=== PATIENT | female | born 1995 | race American Indian/Alaskan Native ===

== ENCOUNTER 2018-02-16 09:40 | Emergency (ER) | payer OTHER ==
[2018-02-16 09:47] VITALS: BP 117/59
[2018-02-16] MEDS ORDERED: TYLENOL #3 PO ONE (12:02)
--- NOTE | 2018-02-16 12:08 | Emergency Department Report ---
HPI - General Chief Complaint: Dental/Oral Time Seen by Provider: 02/16/18 12:02 - HPI HPI: The patient is a 22-year-old female presents for evaluation of mild pain. The patient reports left lower mouth pain for the past 2 days. The patient complains of constant throbbing left lower mild pain exacerbated with chewing. The patient denies trauma to the mouth, dyspnea, neck stiffness, dysphagia, stridor, drooling, difficulty tolerating secretions, dysphonia, hoarseness of voice, abdominal pain. ED Past Medical Hx - Past Medical History Previous Medical History?: No - Surgical History Past Surgical History?: No - Social History Smoking Status: Current Every Day Smoker Substance Use Type: None - Medications Home Medications: Home Medications Medication Instructions Recorded Confirmed Last Taken Type Chlorhexidine Mouthwash [Peridex] 15 ml MM BID #1 bottle 02/16/18 Unknown Rx Ibuprofen [Motrin] 800 mg PO Q8HR PRN #15 tablet 02/16/18 Unknown Rx Penicillin Vk [Veetids TAB] 250 mg PO QID #20 tablet 02/16/18 Unknown Rx traMADol [Ultram 50 MG tab] 50 mg PO Q6HR PRN #15 tablet 02/16/18 Unknown Rx ED Review of Systems ROS: Stated complaint: MOUTH/THROAT PAIN Other details as noted in HPI Constitutional: denies: fever ENT: reports mouth pain denies: throat or neck pain Respiratory: denies: cough, shortness of breath Cardiovascular: denies: chest pain Endocrine: denies unexplained weight loss or gain Gastrointestinal: denies: abdominal pain, nausea Genitourinary: denies: dysuria Musculoskeletal: denies: leg swelling Skin: denies: rash Neurological: denies: headache Hematological/Lymphatic: denies: easy bleeding or easy bruising Psych: denies sadness or hopelessness Physical Exam - Physical Exam Vital Signs: Vital Signs 02/16/18 09:44 Temperature 98.6 F Pulse Rate 112 H Respiratory 15 Rate Blood Pressure 117/59 O2 Sat by Pulse 100 Oximetry Physical Exam: General: well-nourished, well-developed, no acute distress Head: Normocephalic, atraumatic Eyes: normal sclera ENT: Mucous membranes are pink and moist, dental caries extending into the pulp presents to the left lower first molar, mild surrounding erythema present to the gingiva, no fluctuance, swelling, or crepitus, no sign of dental abscess at this time Neck: trachea midline, neck supple, No neck stiffness, no cervical adenopathy Respiratory: Breath sounds equal bilaterally, no wheezing, rales, or rhonchi Cardio: S1 and S2 present, no murmurs, rubs, gallops, capillary refill is brisk Skin: No rash Neuro: no facial drooping, normal speech Psych: Normal affect ED Course Vital Signs 02/16/18 09:44 Temperature 98.6 F Pulse Rate 112 H Respiratory 15 Rate Blood Pressure 117/59 O2 Sat by Pulse 100 Oximetry ED Medical Decision Making - Medical Decision Making The patient was seen and examined by myself. Findings of exam are consistent with acute gingival cellulitis. The patient given pain medicine. The patient given a prescription for penicillin VK and magic mouthwash. The patient was reevaluated and reported that their symptoms were markedly improved. The patient is stable for discharge with outpatient follow-up. The patient is given follow-up and return instructions. The patient expressed understanding and agreed with the plan. The patient is discharged in stable condition. Critical care attestation.: If time is entered above; I have spent that time in minutes in the direct care of this critically ill patient, excluding procedure time. ED Disposition Clinical Impression: Cellulitis of gingiva, Dental caries extending into dentin, Dental cavities, Toothache Disposition: TO HOME OR SELFCARE Is pt being admited?: No Does the pt Need Aspirin: No Condition: Stable Instructions: Dental Caries (ED), Toothache (ED) Referrals: [facility] [Outside] - 3-5 Days [facility] [Outside] - 3-5 Days Time of Disposition: 12:04
== END 2018-02-16 12:41 | disposition home or self-care (01) ==
LOC: ED 09:40
DX: K02.62 Dental caries on smooth surface penetrating into dentin (principal); K12.2 Cellulitis and abscess of mouth; F17.200 Nicotine dependence, unspecified, uncomplicated
CPT/HCPCS: 99282